=== PATIENT | female | born 1940 | race Caucasian/White ===

== ENCOUNTER → 2017-01-12 | Outpatient (CLI) | payer MEDICARE ==
[~2017-01-12] MED LIST: MECL12.579 PO; ONDA4TAB11 PO
--- NOTE | 2017-01-12 09:21 | Diagnostic Imaging Report ---
EXAMINATION: Left breast diagnostic mammogram with tomography. The current study was also evaluated with a Computer Aided Detection (CAD) system. COMPARISON: 12/07/2015. INDICATION: History of breast cancer status post right mastectomy. FINDINGS: The left breast parenchyma is heterogeneously dense which may decrease mammographic sensitivity. There are benign-appearing calcifications seen. No mass, architectural distortion, or suspicious cluster of calcifications. IMPRESSION: Stable mammographic findings. ACR BI-RADS Category 2: Benign findings. Result letter will be mailed to the patient. Note: At least 10% of breast cancer is not imaged by mammography. Dictated by: Dictated on workstation # [id number]
== END ==
LOC: RAD 07:31
DX: Z12.31 Encounter for screening mammogram for malignant neoplasm of breast (principal); Z90.11 Acquired absence of right breast and nipple; Z85.3 Personal history of malignant neoplasm of breast

== ENCOUNTER → 2017-10-25 | Outpatient (CLI) | payer MEDICARE ==
--- NOTE | 2017-10-25 11:37 | Diagnostic Imaging Report ---
INDICATION: Annual checkup. Reticular lung disease COMPARISON: None FINDINGS: Two views of the chest were obtained . Heart size is normal. The pulmonary vessels appear unremarkable. There is no pneumothorax, mediastinal widening or pleural fluid. Lungs are clear. The osseous structures appear unremarkable. IMPRESSION: No acute abnormality is demonstrated. Dictated by: Dictated on workstation # [id number]
== END ==
LOC: RAD 11:00
PROVIDERS: ATTEND Nurse Practitioner Family
DX: J98.4 Other disorders of lung (principal)
CPT/HCPCS: 71046

== ENCOUNTER → 2018-01-23 | Outpatient (CLI) | payer MEDICARE ==
--- NOTE | 2018-01-23 14:41 | Diagnostic Imaging Report ---
INDICATION: Routine screening. COMPARISON: 01/12/2017 and 12/07/2015. TECHNIQUE: Unilateral left 2D and 3D screening mammography was performed with CAD. FINDINGS: The left breast is heterogeneously dense, limiting the sensitivity of mammography. The parenchymal pattern is stable. No dominant mass or malignant appearing microcalcifications are seen. The left axilla is unremarkable. IMPRESSION: No mammographic features suspicious for malignancy are identified. ACR BI-RADS Category 1: Negative. Result letter will be mailed to the patient. Note: At least 10% of breast cancer is not imaged by mammography. Dictated by: Dictated on workstation # [id number]
== END ==
LOC: RAD 09:45
DX: Z12.31 Encounter for screening mammogram for malignant neoplasm of breast (principal)

== ENCOUNTER → 2018-02-07 | Outpatient (CLI) | payer MEDICARE ==
[~2018-02-07] MED LIST changes: +RT-ALBUTEROL SULF 2.5 MG/3 ML PRE-MIX VIAL INH ONE
--- NOTE | 2018-02-07 12:07 | Diagnostic Imaging Report ---
PROCEDURE: CT chest without contrast. TECHNIQUE: Multiple contiguous axial images were obtained through the chest without the use of intravenous contrast. INDICATION: Shortness of air and fatigue. COMPARISON: Comparison is made with prior chest CT from 03/10/2016. FINDINGS: No axillary lymphadenopathy is seen. No definite hilar or mediastinal lymphadenopathy is detected. No pericardial or pleural fluid is detected. Postsurgical changes of right mastectomy are noted. No internal mammary lymphadenopathy is detected. Mild interstitial changes in the left upper and left lower lobe are again seen, which appear chronic. No discrete mass is identified. The upper abdomen is unremarkable. Bony structures are unremarkable. IMPRESSION: Stable chronic interstitial changes in the left lung when compared with prior CT from 03/10/2016. No acute feature is detected. Dictated by: Dictated on workstation # [id number]
== END ==
LOC: RAD 11:26
PROVIDERS: ATTEND Nurse Practitioner Family
DX: J98.4 Other disorders of lung (principal); J30.9 Allergic rhinitis, unspecified; Z90.11 Acquired absence of right breast and nipple
CPT/HCPCS: 71250; 94060; 94726; 94729

== ENCOUNTER → 2019-01-25 | Outpatient (CLI) | payer MEDICARE ==
[~2019-01-25] MED LIST changes: -RT-ALBUTEROL SULF 2.5 MG/3 ML PRE-MIX VIAL INH ONE
--- NOTE | 2019-01-25 12:38 | Diagnostic Imaging Report ---
INDICATION: Routine screening. Comparison is made with prior mammogram from 01/23/2018 and 01/12/2017. 2-D and 3-D unilateral left screening mammography was performed with CAD. Left breast remains heterogeneously dense, limiting the sensitivity of mammography. The parenchymal pattern is stable. No mass or malignant appearing microcalcifications are seen. Left axilla is unremarkable. IMPRESSION: BI-RADS Category 1 No mammographic features suspicious for malignancy are identified. Dictated by: Dictated on workstation # [id number]
== END ==
LOC: RAD 09:34
DX: Z12.31 Encounter for screening mammogram for malignant neoplasm of breast (principal)

== ENCOUNTER → 2019-02-14 | Outpatient (CLI) | payer MEDICARE | LOC: CARD 12:55 | PROVIDERS: ATTEND Internal Medicine Cardiovascular Disease | DX: I35.1 Nonrheumatic aortic (valve) insufficiency (principal); I10 Essential (primary) hypertension; E78.2 Mixed hyperlipidemia; J98.4 Other disorders of lung | CPT/HCPCS: 93306 ==

== ENCOUNTER 2020-01-08 05:47 | Outpatient (CLI) | payer MEDICARE ==
[~2020-01-08] VITALS: Ht 154.9 cm; Wt 63.6 kg
[2020-01-08] MEDS ORDERED: ATOR40TA70 PO (10:51)
[2020-01-08] MEDS ORDERED: AMLO10TA7 PO (10:51)
[2020-01-08] MEDS ORDERED: ASPI-1238 PO (10:51)
[2020-01-08] MEDS ORDERED: OMG1KC PO (10:51)
[2020-01-08] MEDS ORDERED: GABA300C PO (10:51)
[2020-01-08] MEDS ORDERED: PANT40TA52 PO (10:51)
[2020-01-08] MEDS ORDERED: LEVO50TA6 PO (10:51)
== END 2020-01-08 11:02 | disposition home or self-care (01) ==
LOC: PREOP 05:47
PROVIDERS: ATTEND Specialist
DX: Z01.818 Encounter for other preprocedural examination (principal)

== ENCOUNTER → 2020-01-27 | Outpatient (CLI) | payer MEDICARE ==
[~2020-01-27] MED LIST changes: +AMLO10TA7 PO; +ASPI-1238 PO; +ATOR40TA70 PO; +GABA300C PO; +LEVO50TA6 PO; +OMG1KC PO; +PANT40TA52 PO
--- NOTE | 2020-01-27 20:41 | Diagnostic Imaging Report ---
EXAM: Left screening mammogram COMPARISON: This study was compared to the prior exams of 01/25/2019, 01/23/2018 and 01/12/2017. There are no current complaints. The patient did undergo a mastectomy for carcinoma in 1973. FINDINGS: The fibroglandular tissue in the left breast is heterogeneously dense. This does limit the sensitivity of this exam. Overall, there does not appear to have been any significant change when compared to the prior studies. There is no primary or secondary sign of malignancy noted. IMPRESSION: There is no evidence of malignancy. ACR category 1. ACR BI-RADS Category 1: Negative. Result letter will be mailed to the patient. Note: At least 10% of breast cancer is not imaged by mammography. Dictated by: Dictated on workstation # [id number]
== END ==
LOC: RAD 09:30
DX: Z12.31 Encounter for screening mammogram for malignant neoplasm of breast (principal)
CPT/HCPCS: 77063

== ENCOUNTER 2020-01-31 08:51 | Day surgery (SDC) | payer MEDICARE ==
[~2020-01-31] VITALS: Ht 154.9 cm; Wt 63.6 kg
[~2020-01-31 08:51] MED LIST changes: +AMLO-251 PO; -AMLO10TA7 PO
[2020-01-31] MEDS: TETRACAINE 0.5% OPHTH SOLN 4 ML BTL (SINGLE DOSE ONLY) OU PRN ×4 (09:12→09:41)
[2020-01-31] MEDS ORDERED: POVIDONE (BETADINE) OPHTH SOLN 5% 30 ML OP ONE (09:15)
[2020-01-31] MEDS ORDERED: CYCLOPENTOLATE 1% (CYCLOGYL) 2 ML DROPS OP SCH (09:15)
[2020-01-31] MEDS ORDERED: LIDOCAINE PF 1% 2 ML VIAL IR PRN (09:15)
[2020-01-31] MEDS ORDERED: MOXIFLOXACIN OPHTH SOLN 5 MG/ML 0.3 ML SYRINGE OP ONE (09:15)
[2020-01-31] MEDS ORDERED: TIMOLOL MALEATE 0.5% 5 ML (TIMOPTIC) BTL OU PRN (09:15)
[2020-01-31] MEDS ORDERED: MIDAZOLAM 2 MG/2 ML (VERSED) VIAL ONE (09:20)
[2020-01-31 09:26] VITALS: BP 137/70
[2020-01-31] MEDS: PHENYLEPHRINE 10% OPHTH (NEO-SYN) 5 ML BTL OU SCH ×3 (09:28→09:41)
[2020-01-31] MEDS: TROPICAMIDE 1% OPH SOLN (MYDRIACYL) 15 ML BTL OP SCH ×3 (09:32→09:41)
--- NOTE | 2020-01-31 09:38 | Ophthalmologist Pre-Op Note ---
Pre-Operative Progress Note H&P Reviewed The H&P was reviewed, patient examined and no changes noted. Date H&P Reviewed: Jan 31, 2020 Time H&P Reviewed: 09:38 Pre-Op Dx Cataract, Right Eye CHANTALE JOHNSON MD Jan 31, 2020 09:38
--- NOTE | 2020-01-31 10:12 | Ophthalmology Operative Report ---
Cataract removal/placement IOL PREOPERATIVE DIAGNOSIS: Cataract Right Eye POSTOPERATIVE DIAGNOSIS: Cataract Right Eye PROCEDURE: Cataract removal and placement of posterior chamber implant, right eye SURGEON: Marbin Johnson ANESTHESIA: Topical with sedation COMPLICATIONS: None ESTIMATED BLOOD LOSS: Minimal DESCRIPTION OF PROCEDURE: After proper informed consent was obtained, the patient, a 79 female, was taken to the Operating Room and the right eye was anesthetized with tetracaine. The right eye was then prepped and draped in the usual manner. A wire lid speculum was placed. A paracentesis was made at the left hand position. Preservative free lidocaine was injected into the anterior chamber followed by viscoelastic. A clear corneal incision was made in the temporal position. A capsulorrhexis was preformed and the central nuclear and cortical material were removed. The posterior capsule was polished and Prasanna [id number] 15.5 IOL was placed into the capsular bag. The residual viscoelastic was aspirated and balanced saline solution was injected into the anterior chamber. Moxifloxacin was injected into the anterior chamber. The wound was checked and found to be water tight. The patient tolerated the procedure well without complications. MARBIN JOHNSON MD Jan 31, 2020 10:12
[2020-01-31 10:25] VITALS: BP 134/68
[2020-01-31] MEDS ORDERED: acetaZOLAMIDE ER 500 MG CAP (DIAMOX SEQUELS) PO ONE (10:30)
--- NOTE | 2020-01-31 13:57 | Anesthesia-General Post-Op ---
MAC Patient Condition Mental Status/LOC: Same as Preop Cardiovascular: Satisfactory Nausea/Vomiting: Absent Respiratory: Satisfactory Pain: Controlled Complications: Absent Post Op Complications Complications None Follow Up Care/Instructions Patient Instructions None needed. Anesthesiology Discharge Order Discharge Order Patient is doing well, no complaints, stable vital signs, no apparent adverse anesthesia problems. No complications reported per nursing. BERE MARQUES CRNA Jan 31, 2020 13:56
== END 2020-01-31 10:25 | disposition home or self-care (01) ==
LOC: SDC 08:51
PROVIDERS: ATTEND Specialist
DX: H25.11 Age-related nuclear cataract, right eye (principal); E78.00 Pure hypercholesterolemia, unspecified; K57.92 Diverticulitis of intestine, part unspecified, without perforation or abscess without bleeding; Z79.899 Other long term (current) drug therapy; Z91.012 Allergy to eggs; Z88.5 Allergy status to narcotic agent; Z88.0 Allergy status to penicillin; Z88.2 Allergy status to sulfonamides; Z88.1 Allergy status to other antibiotic agents; Z87.891 Personal history of nicotine dependence; Z85.3 Personal history of malignant neoplasm of breast
CPT/HCPCS: 66984; V2787

== ENCOUNTER → 2020-02-05 | Outpatient (CLI) | payer MEDICARE | LOC: LABNPT 06:04 | PROVIDERS: ATTEND Specialist | DX: Z01.812 Encounter for preprocedural laboratory examination (principal); Z20.828 Contact with and (suspected) exposure to other viral communicable diseases | CPT/HCPCS: 87635 ==

== ENCOUNTER 2020-02-07 07:03 | Day surgery (SDC) | payer MEDICARE ==
[~2020-02-07] VITALS: Ht 152 cm; Wt 63.0 kg
[2020-02-07] MEDS ORDERED: LIDOCAINE PF 1% 2 ML VIAL IR PRN (07:15)
[2020-02-07] MEDS ORDERED: MOXIFLOXACIN OPHTH SOLN 5 MG/ML 0.3 ML SYRINGE OP ONE (07:15)
[2020-02-07] MEDS ORDERED: TIMOLOL MALEATE 0.5% 5 ML (TIMOPTIC) BTL OU PRN (07:15)
[2020-02-07] MEDS ORDERED: POVIDONE (BETADINE) OPHTH SOLN 5% 30 ML OP ONE (07:15)
[2020-02-07] MEDS: TETRACAINE 0.5% OPHTH SOLN 4 ML BTL (SINGLE DOSE ONLY) OU PRN ×4 (07:20→07:43)
[2020-02-07 07:24] VITALS: BP 135/61
[2020-02-07] MEDS: TROPICAMIDE 1% OPH SOLN (MYDRIACYL) 15 ML BTL OP SCH ×3 (07:31→07:43)
[2020-02-07] MEDS: PHENYLEPHRINE 10% OPHTH (NEO-SYN) 5 ML BTL OU SCH ×3 (07:31→07:43)
[2020-02-07] MEDS ORDERED: MIDAZOLAM 2 MG/2 ML (VERSED) VIAL ONE (07:38)
--- NOTE | 2020-02-07 08:14 | Ophthalmologist Pre-Op Note ---
Pre-Operative Progress Note H&P Reviewed The H&P was reviewed, patient examined and no changes noted. Date H&P Reviewed: Feb 07, 2020 Time H&P Reviewed: 08:14 Pre-Op Dx Cataract, Left Eye CHANTALE JOHNSON MD Feb 07, 2020 08:14
[2020-02-07] MEDS ORDERED: acetaZOLAMIDE ER 500 MG CAP (DIAMOX SEQUELS) PO ONE (08:30)
--- NOTE | 2020-02-07 08:49 | Ophthalmology Operative Report ---
Cataract removal/placement IOL PREOPERATIVE DIAGNOSIS: Cataract Left Eye POSTOPERATIVE DIAGNOSIS: Cataract Left Eye PROCEDURE: Cataract removal and placement of posterior chamber implant, left eye SURGEON: Marbin Johnson ANESTHESIA: Topical with sedation COMPLICATIONS: None ESTIMATED BLOOD LOSS: Minimal DESCRIPTION OF PROCEDURE: After proper informed consent was obtained, the patient, a 79 female, was taken to the Operating Room and the left eye was anesthetized with tetracaine. The left eye was then prepped and draped in the usual manner. A wire lid speculum was placed. A paracentesis was made at the left hand position. Preservative free lidocaine was injected into the anterior chamber followed by viscoelastic. A clear corneal incision was made in the temporal position. A capsulorrhexis was preformed and the central nuclear and cortical material were removed. The posterior capsule was polished and an Prasanna [id number] 16.0 [id number] was placed into the capsular bag. The residual viscoelastic was aspirated and balanced saline solution was injected into the anterior chamber. Moxifloxacin was injected into the anterior chamber. The wound was checked and found to be water tight. The patient tolerated the procedure well without complications. MARBIN JOHNSON MD Feb 07, 2020 08:49
[2020-02-07 09:05] VITALS: BP 131/64
--- NOTE | 2020-02-07 09:10 | Anesthesia-General Post-Op ---
MAC Patient Condition Mental Status/LOC: Same as Preop Cardiovascular: Satisfactory Nausea/Vomiting: Absent Respiratory: Satisfactory Pain: Controlled Complications: Absent Post Op Complications Complications None Follow Up Care/Instructions Patient Instructions None needed. Anesthesiology Discharge Order Discharge Order Patient is doing well, no complaints, stable vital signs, no apparent adverse anesthesia problems. No complications reported per nursing. JORGE A CHATTERJEE CRNA Feb 07, 2020 09:10
== END 2020-02-07 09:05 | disposition home or self-care (01) ==
LOC: SDC 07:03
PROVIDERS: ATTEND Specialist
DX: H25.12 Age-related nuclear cataract, left eye (principal); I10 Essential (primary) hypertension; J44.9 Chronic obstructive pulmonary disease, unspecified; E03.9 Hypothyroidism, unspecified; E78.00 Pure hypercholesterolemia, unspecified; Z79.899 Other long term (current) drug therapy; Z88.0 Allergy status to penicillin; Z88.2 Allergy status to sulfonamides; Z88.5 Allergy status to narcotic agent; Z91.012 Allergy to eggs; Z87.891 Personal history of nicotine dependence; Z85.3 Personal history of malignant neoplasm of breast
CPT/HCPCS: 66984; V2787

== ENCOUNTER → 2021-01-12 | Outpatient (CLI) | payer MEDICARE | LOC: CARD 11:00 | PROVIDERS: ATTEND Internal Medicine Cardiovascular Disease | DX: I11.9 Hypertensive heart disease without heart failure (principal); I35.1 Nonrheumatic aortic (valve) insufficiency | CPT/HCPCS: 93306 ==

== ENCOUNTER → 2021-02-24 | Outpatient (CLI) | payer MEDICARE ==
[~2021-02-24] MED LIST changes: +CATHETER FLUSH 10 ML SYR IV PRN
[2021-02-24 09:52] VITALS: BP 152/57
[2021-02-24 10:07] VITALS: BP 182/77
--- NOTE | 2021-02-24 13:46 | Cardiology Stress Test Report ---
Stress Test Report Date of Procedure/Referring: Date of Procedure: Feb 24, 2021 PCP Carlos Sigala MD Admitting Physician Elvin Gooden MD Indications: HTN Baseline Heart Rate: 65 Baseline Blood Pressure: Blood Pressure Systolic: 182 Blood Pressure Diastolic: 77 Vital Signs Date Time Temp Pulse Resp B/P (MAP) Pulse Ox O2 Delivery O2 Flow Rate FiO2 02/24/21 09:52 64 17 152/57 (88) 99 Room Air Baseline Vital Signs Vital Signs Date Time Temp Pulse Resp B/P (MAP) Pulse Ox O2 Delivery O2 Flow Rate FiO2 02/24/21 09:52 64 17 152/57 (88) 99 Room Air Baseline EKG: Baseline EKG: NSR Summary: After explaining the procedure and details to the patient, she signed the consent and was brought to the stress nuclear laboratory. Patient exercised on standard Zoran protocol, EKG, heart rate and blood pressure were monitored continuously, resting and stress doses of radio tracer were injected, imaging was acquired and reviewed in the short axis, horizontal long axis and vertical long axis views Patient was able to exercise for a total of 4.30 minutes on Zoran protocol, ME Ts 5.5 Maximum heart rate 127 Maximum blood pressure 182/77 Stress EKG, Minimal nondiagnostic changes Recovery EKG, Return to baseline TID: 1.02 SSS: 1 SDS: 1 EF: 68 Conclusion: 1. Fair exercise tolerance for a total of 4-minute 30 seconds on standard Zoran protocol, total of 5.5 METS achieving 90% of maximal expected heart rate 2. Minimal nondiagnostic EKG changes with exercise return to baseline during recovery 3. Hypertensive response to exercise with peak blood pressure 182/77 return to baseline during recovery 4. No significant ischemia or infarction on SPECT images 5. Normal left ventricular size, EF 68% CARLOS SIGALA MD Feb 24, 2021 13:46
== END ==
LOC: CARD 08:14
PROVIDERS: ATTEND Internal Medicine Cardiovascular Disease
DX: I10 Essential (primary) hypertension (principal)
CPT/HCPCS: 78452; 93017; A9502

== ENCOUNTER → 2021-02-24 | Outpatient (CLI) | payer MEDICARE ==
[~2021-02-24] MED LIST changes: -CATHETER FLUSH 10 ML SYR IV PRN
--- NOTE | 2021-02-24 10:59 | Diagnostic Imaging Report ---
Indication: Routine screening. Comparison is made with prior mammogram from 01/27/2020 and 01/25/2019. Unilateral left 2-D and 3-D screening mammography was performed with CAD. Left breast is heterogeneously dense, limiting the sensitivity of mammography. The parenchymal pattern is stable. No dominant mass or malignant-appearing microcalcifications. The left axilla is unremarkable. IMPRESSION: BI-RADS Category 1 No mammographic features suspicious for malignancy are identified. Dictated by: Dictated on workstation # [id number]
== END ==
LOC: RAD 11:30
DX: Z12.31 Encounter for screening mammogram for malignant neoplasm of breast (principal)
CPT/HCPCS: 77063

== ENCOUNTER 2021-04-01 09:33 | Outpatient (RCR) | payer MEDICARE | END 2021-04-09 | disposition home or self-care (01) | PROVIDERS: ATTEND Family Medicine | DX: M54.32 Sciatica, left side (principal); M25.511 Pain in right shoulder ==

== ENCOUNTER → 2021-05-10 | Outpatient (RCR) | payer MEDICARE | END | disposition home or self-care (01) | PROVIDERS: ATTEND Family Medicine | DX: M54.32 Sciatica, left side (principal); M25.511 Pain in right shoulder; I10 Essential (primary) hypertension | CPT/HCPCS: 97110; 97140; G0283 ==

== ENCOUNTER → 2021-06-07 | Outpatient (RCR) | payer MEDICARE | END | disposition home or self-care (01) | PROVIDERS: ATTEND Family Medicine | DX: M54.32 Sciatica, left side (principal); M25.511 Pain in right shoulder; I10 Essential (primary) hypertension ==

== ENCOUNTER 2021-07-01 11:03 | Outpatient (RCR) | payer MEDICARE | END 2021-07-08 | disposition home or self-care (01) | PROVIDERS: ATTEND Family Medicine | DX: M54.32 Sciatica, left side (principal); M25.511 Pain in right shoulder; I10 Essential (primary) hypertension ==

== ENCOUNTER → 2021-07-15 | Outpatient (CLI) | payer MEDICARE ==
--- NOTE | 2021-07-15 11:39 | Diagnostic Imaging Report ---
INDICATION: Fall with right shoulder and scapular region pain. FINDINGS: AP and lateral views of thoracic spine reveal normal curvature and alignment. Vertebral body heights are maintained. There is mild diffuse disc space narrowing. There is slight left convexity curvature of lower thoracic spine. Calcification in the left upper abdomen could represent renal stone. There are prominent interstitial markings throughout the lungs. IMPRESSION: Thoracic spondylosis with mild left convexity scoliosis. No acute thoracic spinal abnormality is identified. Prominent interstitial markings are present in both lungs which could be related to chronic fibrosis. Dictated by: Dictated on workstation # [id number]
--- NOTE | 2021-07-15 12:46 | Diagnostic Imaging Report ---
INDICATION: Right clavicle pain. TECHNIQUE: AP and angled views of the right clavicle were obtained. FINDINGS: No fracture or acute bony abnormality is seen. There is moderate degenerative change of the AC joint. IMPRESSION: No acute fracture of the right clavicle. Moderate degenerative change of the AC joint is noted. Dictated by: Dictated on workstation # [id number]
--- NOTE | 2021-07-15 13:06 | Diagnostic Imaging Report ---
INDICATION: Right shoulder pain. AP, oblique, and transscapular views of the right shoulder are obtained. FINDINGS: No fracture or acute bony abnormality seen. There is mild degenerative changes of glenohumeral joint and AC joint. IMPRESSION: Mild degenerative findings with no acute abnormality of the right shoulder. Dictated by: Dictated on workstation # [id number]
--- NOTE | 2021-07-15 13:14 | Diagnostic Imaging Report ---
INDICATION: Scapular pain, post fall. TECHNIQUE: AP and lateral views of the scapula on the right side are obtained. FINDINGS: No fracture or acute bony abnormality is seen. IMPRESSION: Negative right scapula. Dictated by: Dictated on workstation # [id number]
== END ==
LOC: RAD 10:51
PROVIDERS: ATTEND Family Medicine
DX: M19.011 Primary osteoarthritis, right shoulder (principal); M47.814 Spondylosis without myelopathy or radiculopathy, thoracic region; M41.9 Scoliosis, unspecified
CPT/HCPCS: 72070; 73000; 73010; 73030

== ENCOUNTER 2021-10-19 12:54 | Outpatient (CLI) | payer MEDICARE ==
[~2021-10-19] VITALS: Ht 152.4 cm; Wt 64.0 kg
[2021-10-19 14:00] VITALS: BP 153/63
== END 2021-10-19 14:00 | disposition home or self-care (01) ==
LOC: SDC 12:54
PROVIDERS: ATTEND Nurse Practitioner Family
DX: R10.2 Pelvic and perineal pain (principal); R30.0 Dysuria
CPT/HCPCS: 51798

== ENCOUNTER 2022-11-02 06:27 | Outpatient (CLI) | payer MEDICARE ==
[~2022-11-02] VITALS: Ht 153.7 cm; Wt 66.8 kg
[2022-11-02] MEDS ORDERED: OFLO5DRO8 OP (13:50)
[2022-11-02] MEDS ORDERED: LISI10TA25 PO (13:50)
[2022-11-02] MEDS ORDERED: GEMF600T88 PO (13:50)
== END 2022-11-02 14:02 | disposition home or self-care (01) ==
LOC: PREOP 06:27
PROVIDERS: ATTEND Surgery
DX: Z01.818 Encounter for other preprocedural examination (principal)

== ENCOUNTER 2022-11-07 10:45 | Day surgery (SDC) | payer MEDICARE ==
[~2022-11-07] VITALS: Ht 153.7 cm; Wt 66.8 kg
[~2022-11-07 10:45] MED LIST changes: +GEMF600T88 PO; +LISI10TA25 PO; +OFLO5DRO8 OP
[2022-11-07] MEDS ORDERED: LACTATED RINGERS 1,000 ML IV STA (10:48)
[2022-11-07] MEDS ORDERED: HURRICAINE EXT TUBE (BENZOCAINE) XX PRN (11:00)
--- NOTE | 2022-11-07 11:11 | Progress Note-Pre Operative ---
Pre-Operative Progress Note Date of Available H&P: Nov 01, 2022 Date H&P Reviewed: Nov 07, 2022 Time H&P Reviewed: 11:08 History & Physical: H&P Reviewed, Patient Examed, No changes noted Pre-Operative Diagnosis: GERD, Dysphagia, Coffee ground emesis TRUDY AVILA DO Nov 07, 2022 11:11
[2022-11-07] MEDS ORDERED: proPOfol 200 MG/20 ML (DIPRIVAN) VIAL IV ONE (11:39)
[2022-11-07 11:40] VITALS: BP 156/66
[2022-11-07 12:15] VITALS: BP 153/67
--- NOTE | 2022-11-07 12:17 | Progress Note-Post Operative ---
Post-Operative Progess Note Surgeon (s)/Manager Staffing (s) Surgeon TRUDY AVILA DO Manager Staffing: none Pre-Operative Diagnosis GERD, Dysphagia, Coffee ground emesis Post-Operative Diagnosis Gastritis Duodenitis Hiatal hernia Esophagitis Gastric Polyps Procedure & Operative Findings Date of Procedure 11/07/22 Procedure Performed/Findings EGD with biopsy EGD with Hot biopsy removal of polyps PROCEDURE NOTE: After informed consent was obtained, the patient was brought to the endoscopy suite, placed in bed in left lateral decubitus position. She was administered IV sedation by the PHOTOGRAPH PRINTER who then monitored vitals the entire time, heart rate, blood pressure and pulse ox and the scope was inserted down the mouth through the esophagus into the stomach. On the way down, noted some mild esophagitis, took a picture and pushed into the stomach. I did not really no raj any stricture or narrowing at the GE junction. Pushed past the antrum into the duodenum. Duodenum appeared to have some inflammation and did a biopsy in the bulb of the duodenum. Pulled back, noted some mild gastritis and did a biopsy of the antrum. I also found a lot of gastric polyps, took a picture and then elected to do a hot biopsy and remove three polyps. Next, retroflexed the scope, saw a large Grade IV AFS hiatal hernia, took a picture of this and then pulled the scope into the GE junction. I took another picture of the hiatal hernia, noted esophagitis and then did a biopsy of the GE junction. Pushed the scope back into the stomach, suctioned all the air out of the stomach. At this point pulled the scope up the esophagus and out the mouth. The patient tolerated the procedure, and she recovered in endoscopy suite. Anesthesia Type IV sedation by PHOTOGRAPH PRINTER Estimated Blood Loss Estimated blood loss (mL): scant Specimens/Packing Specimens Removed antral bx duodenal biops GE jxn bx Gastric polyps TRUDY AVILA DO Nov 07, 2022 12:17
--- NOTE | 2022-11-07 12:18 | Endoscopy Discharge Instruct ---
Endo Procedure/Findings Findings 1.: Gastritis 2.: Hiatal Hernia 3.: Polyp (Gastric), Other Findings (Esophagitis) 4.: Other Findings (duodenitis) Discharge Instructions - Activity: You might feel a little sleepy until tomorrow. This is due to the medicine you received to relax you. Until tomorrow, you should: NOT drive a car, operate machinery or power tools. NOT drink any alcoholic beverages. NOT make any important decisions or sign importortant papers. Do not return to work until tomorrow, unless otherwise instructed. Resume previous activities tomorrow. Diet: Start by taking liquids. If you tolerate liquids, advance to solid food. 1.: EGD in 3 years Notify Physician - If you experience excessive bleeding, unusual abdominal pain, fever, or chest pain, contact your doctor immediately. Follow-Up: Other Follow up in my office in one week TRUDY AVILA DO Nov 07, 2022 12:18
--- NOTE | 2022-11-07 12:19 | Anesthesia-General Post-Op ---
MAC Patient Condition Mental Status/LOC: Same as Preop Cardiovascular: Satisfactory Nausea/Vomiting: Absent Respiratory: Satisfactory Pain: Controlled Complications: Absent Post Op Complications Complications None Follow Up Care/Instructions Patient Instructions None needed. Anesthesiology Discharge Order Discharge Order Patient is doing well, no complaints, stable vital signs, no apparent adverse anesthesia problems. No complications reported per nursing. VIOLET CRUZ CRNA Nov 07, 2022 12:19
[2022-11-07 12:28] VITALS: BP 153/67
[2022-11-07 12:50] VITALS: BP 153/67
== END 2022-11-07 12:50 | disposition home or self-care (01) ==
LOC: ENDO 10:45
PROVIDERS: ATTEND Surgery
DX: K21.00 Gastro-esophageal reflux disease with esophagitis, without bleeding (principal); K31.7 Polyp of stomach and duodenum; K29.80 Duodenitis without bleeding; K92.0 Hematemesis; K44.9 Diaphragmatic hernia without obstruction or gangrene; K31.89 Other diseases of stomach and duodenum; Z87.891 Personal history of nicotine dependence; Z71.89 Other specified counseling
CPT/HCPCS: 88305

== ENCOUNTER 2023-02-05 19:05 | Day surgery (SDC) | payer MEDICARE ==
[~2023-02-05] VITALS: Ht 152.4 cm; Wt 63.0 kg
[2023-02-05] VITALS (8 sets, daily range): BP systolic 153–163; BP diastolic 65–76
[2023-02-05 19:30] LABS: BASOPHILS % (AUTO) 1 % (0-10); EOSINOPHILS # (AUTO) 0.6 10^3/uL (0.0-0.3); EOSINOPHILS % (AUTO) 10 % (0-10); HEMATOCRIT 41 % (35-52); LYMPHOCYTES # (AUTO) 1.3 10^3/uL (1.0-4.0); LYMPHOCYTES % (AUTO) 23 % (12-44); MEAN CORPUSCULAR HEMOGLOBIN 30 pg (25-34); MEAN CORPUSCULAR HGB CONC 32 g/dL (32-36); MEAN CORPUSCULAR VOLUME 93 fL (80-99); MONOCYTES # (AUTO) 0.5 10^3/uL (0.0-1.0); MONOCYTES % (AUTO) 9 % (0-12); NEUTROPHILS # (AUTO) 3.3 10^3/uL (1.8-7.8); NEUTROPHILS % (AUTO) 58 % (42-75); PLATELET COUNT 225 10^3/uL (130-400); WHITE BLOOD COUNT 5.7 10^3/uL (4.3-11.0)
[2023-02-05] MEDS: GLUCAGON EMERGENCY 1 MG/KIT IV ONE (19:37)
--- NOTE | 2023-02-05 19:41 | ED GI ---
General Chief Complaint: Foreign Body Stated Complaint: FOOD STUCK IN THROAT Nursing Triage Note: PT AMB TO RM 2 W C/O FOOD BOLUS, REPORTS SHE WAS EATING CHICKEN AND DUMPLINGS AROUND 1809 THIS PM WHEN A PIECE OF CHICKEN GOT STUCK. PT HAS HX OF FOOD BOLUS, A&OX4. Source of Information: Patient History of Present Illness Date Seen by Provider: Feb 05, 2023 Time Seen by Provider: 19:16 Initial Comments PT ARRIVES VIA POV FROM HOME PT STATES SHE WAS EATING CHICKEN AND DUMPLINGS AROUND 1809, AND PIECE OF CHICKEN GOT STUCK IN HER ESOPHAGUS. SHE IS NOT ABLE TO SWALLOW SALIVA NO VOMITING, BUT HAS TRIED TO THROW UP, WITHOUT SUCCESS FEELS A LITTLE SHORT OF BREATH NO ACTUAL CHEST PAIN, JUST IS UNCOMFORTABLE FEELING SHE HAS HISTORY OF GERD AND HIATAL HERNIA AND THIS HAS HAPPENED MULTIPLE TIMES MANY TIMES SHE IS ABLE TO GET IT RESOLVED ON HER OWN, SOMETIMES SHE HAS REQUIRED EGD SHE HAS HAD ESOPHAGEAL DILATIONS IN THE PAST. LAST TIME IT HAPPENED WAS ABOUT 3 MONTHS AGO, AND IT RESOLVED AT HOME. PCP: DR. ABDI Allergies and Home Medications Allergies Coded Allergies: morphine (Verified Allergy, Intermediate, Vomiting, 10/19/21) Penicillins (Verified Allergy, Mild, Rash, 10/19/21) Sulfa (Sulfonamide Antibiotics) (Verified Allergy, Unknown, 02/07/20) adhesive (Verified Allergy, Unknown, 10/19/21) egg (Verified Allergy, Unknown, 02/07/20) Patient Home Medication List Home Medication List Reviewed: Yes Amlodipine Besylate (Amlodipine Besylate) 10 Mg Tablet, 10 MG PO DAILY, (Reported) Entered as Reported by: BRIAN KIM on 01/08/20 105 Aspirin (Aspirin EC) 81 Mg Tablet.dr, 81 MG PO DAILY, (Reported) Entered as Reported by: BRIAN KIM on 01/08/20 1051 Atorvastatin Calcium (Atorvastatin Calcium) 40 Mg Tablet, 40 MG PO HS, (Reported) Entered as Reported by: BRIAN KIM on 01/08/20 105 Gabapentin (Neurontin) 300 Mg Capsule, 300 MG PO HS, (Reported) Entered as Reported by: BRIAN KIM on 01/08/20 105 Gemfibrozil (Gemfibrozil) 600 Mg Tablet, 600 MG PO DAILY, (Reported) Entered as Reported by: SADA QUINN on 11/02/22 1350 Levothyroxine Sodium (Levothyroxine Sodium) 50 Mcg Tablet, 50 MCG PO DAILY, (Reported) Entered as Reported by: BRIAN KIM on 01/08/20 1051 Lisinopril (Lisinopril) 10 Mg Tablet, 10 MG PO DAILY, (Reported) Entered as Reported by: SADA QUINN on 11/02/22 1350 Ofloxacin (Ofloxacin) 0.3 % Drops, 2 DROPS OP DAILY, (Reported) Entered as Reported by: SADA QUINN on 11/02/22 1350 Pantoprazole Sodium (Pantoprazole Sodium) 40 Mg Tablet.dr, 40 MG PO DAILY, (Reported) Entered as Reported by: BRIAN KIM on 01/08/20 1051 Review of Systems Review of Systems Constitutional: no symptoms reported Respiratory: See HPI Gastrointestinal: See HPI Psychiatric/Neurological: Anxiety Past Efnywwb-Uefnnh-Ftdnbb Hx Patient Social History Tobacco Use?: No Use of E-Cig and/or Vaping dev: No Substance use?: No Alcohol Use?: No Immunizations Up To Date First/Initial COVID19 Vaccinat: YES Second COVID19 Vaccination Herbert: YES Third COVID19 Vaccination Date: YES Seasonal Allergies Seasonal Allergies: Yes Past Medical History Surgeries: Yes (R MASTECTOMY;EGD'S/DILATIONS) Breast, Hysterectomy, Orthopedic Respiratory: Yes (RESTRICTIVE LUNG DISEASE) Cardiac: Yes High Cholesterol, Hypertension Neurological: No NAPRAPATH History: Hysterectomy, Menopausal Genitourinary: Yes (SILVIA) Gastrointestinal: Yes (ESOPH STRICTURE/FOOD IMPACTIONS IN ESOPHAGUS) Gastroesophageal Reflux, Diverticulosis, Hiatal Hernia Musculoskeletal: No Endocrine: Yes Hypothyroidsim HEENT: No Cancer: Yes Breast Did You Recieve Any Treatments: Yes What Type of Treatment Did You: Surgical Intervention Psychosocial: Yes Anxiety Integumentary: Yes (THIN SKIN) Blood Disorders: No Physical Exam Vital Signs Vital Signs - First Documented 02/05/23 19:15 Temp 37.0 Pulse 76 Resp 18 B/P (MAP) 167/106 (126) Pulse Ox 99 O2 Delivery Room Air Capillary Refill : Less Than 3 Seconds Height/Weight/BMI Height: '" Weight: lbs. oz. 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, no motor/sensory deficits, alert, oriented x 3 Skin: normal color, warm/dry Progress/Results/Core Measures Results/Orders Lab Results Laboratory Tests Test 02/05/23 19:22 Range/Units White Blood Count 5.7 4.3-11.0 10^3/uL Red Blood Count 4.36 3.80-5.11 10^6/uL Hemoglobin 13.0 11.5-16.0 g/dL Hematocrit 41 35-52 % Mean Corpuscular Volume 93 80-99 fL Mean Corpuscular Hemoglobin 30 25-34 pg Mean Corpuscular Hemoglobin Concent 32 32-36 g/dL Red Cell Distribution Width 13.8 10.0-14.5 % Platelet Count 225 130-400 10^3/uL Mean Platelet Volume 11.0 9.0-12.2 fL Immature Granulocyte % (Auto) 0 % Neutrophils (%) (Auto) 58 42-75 % Lymphocytes (%) (Auto) 23 12-44 % Monocytes (%) (Auto) 9 0-12 % Eosinophils (%) (Auto) 10 0-10 % Basophils (%) (Auto) 1 0-10 % Neutrophils # (Auto) 3.3 1.8-7.8 10^3/uL Lymphocytes # (Auto) 1.3 1.0-4.0 10^3/uL Monocytes # (Auto) 0.5 0.0-1.0 10^3/uL Eosinophils # (Auto) 0.6 H 0.0-0.3 10^3/uL Basophils # (Auto) 0.0 0.0-0.1 10^3/uL Immature Granulocyte # (Auto) 0.0 0.0-0.1 10^3/uL Sodium Level 140 135-145 MMOL/L Potassium Level 4.2 3.6-5.0 MMOL/L Chloride Level 105 98-107 MMOL/L Carbon Dioxide Level 22 21-32 MMOL/L Anion Gap 13 5-14 MMOL/L Blood Urea Nitrogen 24 H 7-18 MG/DL Creatinine 1.22 0.60-1.30 MG/DL Estimat Glomerular Filtration Rate 44 BUN/Creatinine Ratio 20 Glucose Level 135 H 70-105 MG/DL Calcium Level 9.9 8.5-10.1 MG/DL Corrected Calcium 8.5-10.1 MG/DL Total Bilirubin 0.4 0.1-1.0 MG/DL Aspartate Amino Transf (AST/SGOT) 21 5-34 U/L Alanine Aminotransferase (ALT/SGPT) 11 0-55 U/L Alkaline Phosphatase 86 40-136 U/L Total Protein 8.1 6.4-8.2 GM/DL Albumin 4.8 H 3.2-4.5 GM/DL Amylase Level 94 25-125 U/L Lipase 304 H 8-78 U/L My Orders Orders - LIZ SALAMANCA DO Ed Iv/Invasive Line Start (02/05/23 19:23) Monitor-Rhythm Ecg Trace Only (02/05/23 19:23) Amylase (02/05/23 19:23) Cbc And Automated Diff (02/05/23 19:23) Comprehensive Metabolic Panel (02/05/23 19:23) Lipase (02/05/23 19:23) Chest 1 View, Ap/Pa Only (02/05/23 19:23) Glucagon Emergency Kit (Glucagon Emergen (02/05/23 19:30) Medications Given in ED Current Medications Medications Dose Ordered Sig/Belkis Route Start Time Stop Time Status Last Admin Dose Admin Glucagon 1 mg ONCE ONCE IV 02/05/23 19:30 02/05/23 19:31 DC 02/05/23 19:37 1 MG Vital Signs/I&O 02/05/23 19:15 Temp 37.0 Pulse 76 Resp 18 B/P (MAP) 167/106 (126) Pulse Ox 99 O2 Delivery Room Air Blood Pressure Mean: 126 Progress Progress Note : Progress Note VITALS ON ARRIVAL: TEMP 37.0=98/6, HR 76, RR 18, BP 167/106, O2 SAT 99% ON ROOM AIR LABS: -CBC NORMAL -CMP WITH BUN 24, GLUCOSE 135, LIPASE 304, AMYLASE 94, OTHERWISE NORMAL CXR--NO ACUTE PROCESS GIVEN: -GLUCAGON--NO IMPROVEMENT IN SYMPTOMS DISCUSSED TEST RESULTS, NEED FOR ENDOSCOPY AND PT IS AGREEABLE TO PLAN Diagnostic Imaging Comments CXR--PER RADIOLOGIST REPORT AT 1954 FINDINGS: Low lung volumes. Normal heart size such pulmonary vascularity. No focal pulmonary opacity. No pleural effusion or pneumothorax. No acute osseous findings. IMPRESSION: No acute cardiopulmonary findings. Reviewed: Reviewed by Me Departure Communication (Admissions) 1957--SPOKE WITH DR. VÁZQUEZ, WILL BE IN TO SEE PT AND WILL TAKE TO ENDOSCOPY. 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 VÁZQUEZ HERE TO SEE PT 2049--PT TO ENDOSCOPY Impression Primary Impression: Esophageal obstruction due to food impaction Disposition: ADMITTED INPATIENT (TO ENDOSCOPY) Condition: Stable Admissions Decision to Admit Reason: Admit from ER (General) (TO ENDOSCOPY) Decision to Admit/Date: Feb 05, 2023 Time/Decision to Admit Time: 20:00 Departure-Patient Inst. Referrals: JESSICA ABDI MD (PCP) Primary Care Physician LIZ SALAMANCA DO Feb 05, 2023 19:41
--- NOTE | 2023-02-05 19:44 | Diagnostic Imaging Report ---
EXAM: CHEST 1 VIEW, AP/PA ONLY INDICATION: Shortness of breath. Food bolus and esophagus. COMPARISON: None. FINDINGS: Low lung volumes. Normal heart size such pulmonary vascularity. No focal pulmonary opacity. No pleural effusion or pneumothorax. No acute osseous findings. IMPRESSION: No acute cardiopulmonary findings. Dictated by: Dictated on workstation # [id number]
[2023-02-05 19:54] LABS: ALANINE AMINOTRANSFERASE 11 U/L (0-55); ALBUMIN 4.8 GM/DL (3.2-4.5); ALKALINE PHOSPHATASE 86 U/L (40-136); AMYLASE 94 U/L (25-125); BILIRUBIN,TOTAL 0.4 MG/DL (0.1-1.0); BUN/CREATININE RATIO 20; CALCIUM 9.9 MG/DL (8.5-10.1); CARBON DIOXIDE 22 MMOL/L (21-32); CHLORIDE 105 MMOL/L (98-107); CREATININE SERUM 1.22 MG/DL (0.60-1.30); GFR ESTIMATED 44; GLUCOSE 135 MG/DL (70-105); LIPASE 304 U/L (8-78); POTASSIUM 4.2 MMOL/L (3.6-5.0); SODIUM 140 MMOL/L (135-145); TOTAL PROTEIN 8.1 GM/DL (6.4-8.2)
[2023-02-05] MEDS ORDERED: fentaNYL INJECTION 100 MCG/2 ML VIAL ONE (20:34)
[2023-02-05] MEDS ORDERED: SUCCINYLCHOLINE INJ 20 MG/1 ML 10 ML VIAL ONE (20:34)
[2023-02-05] MEDS ORDERED: proPOfol INJECTION 200 MG/20 ML VIAL IV ONE (20:34)
[2023-02-05] MEDS ORDERED: ONDANSETRON INJECTION 4 MG/2 ML (SDV) ONE (20:34)
[2023-02-05] MEDS ORDERED: LIDOCAINE PF 2% 5 ML VIAL ONE (20:34)
--- NOTE | 2023-02-05 20:43 | Consultation - Surgery ---
History of Present Illness History of Present Illness Patient Consulted On(martinez/time) 02/05/23 20:36 Date Seen by Provider: Feb 05, 2023 Time Seen by Provider: 20:36 History of Present Illness CC: food bolus 82 year old female eating chicken and dumplings. Has some chicken she believes stuck in distal esophagus. Can't get it to come up or down. Has had issues for 15 years of foods getting stuck. Had to have previous egd and dilations. No abdominal pain. Occurred about 6pm. Spitting up continuously. Denies any other complaints. Allergies and Home Medications Allergies Coded Allergies: morphine (Verified Allergy, Intermediate, Vomiting, 10/19/21) Penicillins (Verified Allergy, Mild, Rash, 10/19/21) Sulfa (Sulfonamide Antibiotics) (Verified Allergy, Unknown, 02/07/20) adhesive (Verified Allergy, Unknown, 10/19/21) egg (Verified Allergy, Unknown, 02/07/20) Patient Home Medication List Home Medication List Reviewed: Yes Amlodipine Besylate (Amlodipine Besylate) 10 Mg Tablet, 10 MG PO DAILY, (Reported) Entered as Reported by: BRIAN KIM on 01/08/20 1051 Aspirin (Aspirin EC) 81 Mg Tablet.dr, 81 MG PO DAILY, (Reported) Entered as Reported by: BRIAN KIM on 01/08/20 1051 Atorvastatin Calcium (Atorvastatin Calcium) 40 Mg Tablet, 40 MG PO HS, (Reported) Entered as Reported by: BRIAN KIM on 01/08/20 1051 Gabapentin (Neurontin) 300 Mg Capsule, 300 MG PO HS, (Reported) Entered as Reported by: BRIAN KIM on 01/08/20 1051 Gemfibrozil (Gemfibrozil) 600 Mg Tablet, 600 MG PO DAILY, (Reported) Entered as Reported by: SADA QUINN on 11/02/22 1350 Levothyroxine Sodium (Levothyroxine Sodium) 50 Mcg Tablet, 50 MCG PO DAILY, (Reported) Entered as Reported by: BRIAN KIM on 01/08/20 1051 Lisinopril (Lisinopril) 10 Mg Tablet, 10 MG PO DAILY, (Reported) Entered as Reported by: SADA QUINN on 11/02/22 1350 Ofloxacin (Ofloxacin) 0.3 % Drops, 2 DROPS OP DAILY, (Reported) Entered as Reported by: SADA QUINN on 11/02/22 1350 Pantoprazole Sodium (Pantoprazole Sodium) 40 Mg Tablet.dr, 40 MG PO DAILY, (Reported) Entered as Reported by: BRIAN KIM on 01/08/20 1051 Past Pmdsppx-Vqbhsv-Clgjyc Hx Patient Social History Smoking Status: Never a Smoker Former Smoker, Quit: Oct 08, 1985 Recent Hopitalizations: No Alcohol Use?: No Seasonal Allergies Seasonal Allergies: Yes Surgeries History of Surgeries: Yes (R MASTECTOMY;EGD'S/DILATIONS) Surgeries: Breast, Hysterectomy, Orthopedic Respiratory History of Respiratory Disorde: Yes (RESTRICTIVE LUNG DISEASE) Cardiovascular History of Cardiac Disorders: Yes Cardiac Disorders: High Cholesterol, Hypertension Neurological History of Neurological Disord: No 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, 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 Genitourinary History of Genitourinary Disor: Yes (SILVIA) Gastrointestinal History of Gastrointestinal Di: Yes (ESOPH STRICTURE/FOOD IMPACTIONS IN ESOPHAGUS) Gastrointestinal Disorders: Gastroesophageal Reflux, Diverticulosis, Hiatal Hernia Musculoskeletal History of Musculoskeletal Dis: No Endocrine History of Endocrine Disorders: Yes Endocrine Disorders: Hypothyroidsim HEENT History of HEENT Disorders: No Cancer History of Cancer: Yes Cancer: Breast Psychosocial History of Psychiatric Problem: Yes Behavioral Health Disorders: Anxiety Integumentary History of Skin or Integumenta: Yes (THIN SKIN) Blood Transfusions History of Blood Disorders: No Reviewed Nursing Assessment Reviewed/Agree w Nursing PMH: Yes Family Medical History Significant Family History: No Pertinent Family Hx Review of Systems-General Constitutional: No chills, No diaphoresis EENTM: No blurred vision, No double vision Respiratory: No dyspnea on exertion, No short of breath Cardiovascular: No chest pain, No palpitations Gastrointestinal: nausea, vomiting Genitourinary: No decreased output, No discharge Musculoskeletal: No back pain, No joint pain Skin: No change in color, No change in hair/nails Psychiatric/Neurological: Denies Anxiety, Denies Depressed, Denies Emotional Problems All Other Systems Reviewed Negative Unless Noted: Yes (Negative excepted noted.) Physical Exam-General Problems Physical Exam Vital Signs Vital Signs - First Documented 02/05/23 19:15 Temp 37.0 Pulse 76 Resp 18 B/P (MAP) 167/106 (126) Pulse Ox 99 O2 Delivery Room Air Capillary Refill : Less Than 3 Seconds General Appearance: WD/WN, no apparent distress HEENT: PERRL/EOMI, normal ENT inspection Neck: non-tender, full range of motion Respiratory: chest non-tender, no respiratory distress, no accessory muscle use Cardiovascular: regular rate, rhythm, no JVD Gastrointestinal: non tender, soft Back: normal inspection, no CVA tenderness Extremities: non-tender, normal inspection Neurologic/Psychiatric: alert, normal mood/affect, oriented x 3 Skin: normal color, warm/dry Lymphatic: no adenopathy Data Review Labs Laboratory Tests 02/05/23 19:22: White Blood Count 5.7, Red Blood Count 4.36, Hemoglobin 13.0, Hematocrit 41, Mean Corpuscular Volume 93, Mean Corpuscular Hemoglobin 30, Mean Corpuscular Hemoglobin Concent 32, Red Cell Distribution Width 13.8, Platelet Count 225, Mean Platelet Volume 11.0, Immature Granulocyte % (Auto) 0, Neutrophils (%) (Auto) 58, Lymphocytes (%) (Auto) 23, Monocytes (%) (Auto) 9, Eosinophils (%) (Auto) 10, Basophils (%) (Auto) 1, Neutrophils # (Auto) 3.3, Lymphocytes # (Auto) 1.3, Monocytes # (Auto) 0.5, Eosinophils # (Auto) 0.6H, Basophils # (Auto) 0.0, Immature Granulocyte # (Auto) 0.0, Sodium Level 140, Potassium Level 4.2, Chloride Level 105, Carbon Dioxide Level 22, Anion Gap 13, Blood Urea Nitrogen 24H, Creatinine 1.22, Estimat Glomerular Filtration Rate 44, BUN/Creatinine Ratio 20, Glucose Level 135H, Calcium Level 9.9, Corrected Calcium , Total Bilirubin 0.4, Aspartate Amino Transf (AST/SGOT) 21, Alanine Aminotransferase (ALT/SGPT) 11, Alkaline Phosphatase 86, Total Protein 8.1, Albumin 4.8H, Amylase Level 94, Lipase 304H Assessment/Plan Assessment/Plan Assessment/Plan food bolus long-term antiplatelet use discussed risks and benefits of EGD and all other indicated procedures. She understands and wishes to proceed. Called in ENDO and Anesthesia for procedure Discussed liquid diet for a couple days and then slowly advance may need further egd's to reevaluate DEBRA VÁZQUEZ DO Feb 05, 2023 20:43
[2023-02-05] MEDS ORDERED: SEVOFLURANE (ULTANE) 15 ML INHAL SOLN ONE (21:38)
--- NOTE | 2023-02-05 21:50 | Progress Note-Post Operative ---
Post-Operative Progess Note Surgeon (s)/[employer] (s) Surgeon DEBRA VÁZQUEZ DO [employer]: na Pre-Operative Diagnosis food bolus Post-Operative Diagnosis food bolus, distal narrowing, gastric polyps Procedure & Operative Findings Date of Procedure 02/05/23 Procedure Performed/Findings egd c removal food bolus esophagus using reveal distal end cap, biopsy ge junction Anesthesia Type general Estimated Blood Loss Estimated blood loss (mL): scant Specimens/Packing Specimens Removed ge DEBRA VÁZQUEZ DO Feb 05, 2023 21:50
[2023-02-05] MEDS ORDERED: SUCR1TAB36 PO (21:52)
--- NOTE | 2023-02-05 21:53 | Discharge Inst-Simple/Standard ---
Discharge Inst-Standard Discharge Medications New, Converted or Re-Newed RX: Transmitted to Pharmacy Patient Instructions/Follow Up Plan of Care/Instructions/FU: 2 weeks Ghazal Activity as Tolerated: Yes Discharge Diet: Liquid Diet (2 days then advance as tolerates, make sure consistency of solid food is ground up, take small bites followed by drinks of water.) DEBRA VÁZQUEZ DO Feb 05, 2023 21:53
[2023-02-05] MEDS ORDERED: LACTATED RINGERS 1,000 ML 1,000 ML IV PRN (22:00)
--- NOTE | 2023-02-05 22:07 | Anesthesia-General Post-Op ---
General Patient Condition Mental Status/LOC: Same as Preop Cardiovascular: Satisfactory Nausea/Vomiting: Absent Respiratory: Satisfactory Pain: Controlled Complications: Absent Post Op Complications Complications None Follow Up Care/Instructions Patient Instructions None needed. Anesthesia/Patient Condition Patient Condition Patient is doing well, no complaints, stable vital signs, no apparent adverse anesthesia problems. No complications reported per nursing. CHANCE OLIVEROS CRNA Feb 05, 2023 22:07
[2023-02-05] MEDS: fentaNYL INJECTION 100 MCG/2 ML VIAL IVP ONE (22:49)
[2023-02-05] MEDS: ONDANSETRON INJECTION 4 MG/2 ML (SDV) IVP PRN (22:49)
--- NOTE | 2023-02-06 01:06 | OPERATIVE REPORT ---
DATE OF SERVICE: 02/05/2023 PREOPERATIVE DIAGNOSIS: Food bolus. POSTOPERATIVE DIAGNOSES: Food bolus, distal narrowing of the esophagus, gastric polyps. PROCEDURES: EGD with removal of food bolus of the esophagus using Reveal Distal end cap and biopsy of GE junction. INDICATIONS: The patient is an 82-year-old female eating chicken noodle, then felt that lodge and could not keep secretions down. She has had previous episodes of this. She understands risks and benefits and wished to proceed. Consent was signed and in chart. DESCRIPTION OF PROCEDURE: The patient was taken to the endoscopy suite, placed in left lateral recumbent position. Timeout was performed. Scope was inserted in the mouth, down the esophagus, I encountered large amount of secretions and food particulate. This was able to be suctioned as much as possible. Scope was then retracted back. A Reveal Distal end cap was placed and inserted and continuous suction and removed the food particles by suctioning and retracting out removing it from the esophagus and mouth. Multiple insertions and retractions were made until all the food particulate was removed. The scope was able to be passed through the GE junction into the stomach. Minimal food contents in the stomach, multiple gastric polyps present. Scope was retroflexed noting no other pathology. Scope was returned to its normal position, slowly withdrawn until completely removed. Reveal distal end cap was removed. Scope was inserted in the mouth, down the esophagus, stomach, into the duodenum without difficulty. There were no polyps, masses or ulcerations in the duodenum. Scope was slowly retracted back into stomach where it was further insufflated noting no other changes. Scope was then slowly retracted back to the distal esophagus, had some slight narrowing, and some erythematous changes. Biopsy of GE junction was obtained. Scope was slowly retracted back until completely removed, noting no other pathology. RECOMMENDATIONS: The patient to continue on Protonix, we will add Carafate 1 gram 4 times a day made into a slurry. She will follow up in 2 weeks. She will follow up on pathology in 2 weeks. We would consider repeating EGD and possible dilatation for followup. Job ID: [id number] DocumentID: [id number] Dictated Date: 02/05/2023 21:57:04 Turbine Room Attendant Date: 02/06/2023 01:04:00 Dictated By: DEBRA VÁZQUEZ DO
== END 2023-02-05 23:50 | disposition home or self-care (01) ==
LOC: EDUNIT# 19:05 → ER 19:06 → SDC 20:29
PROVIDERS: ATTEND Surgery
DX: T18.128A Food in esophagus causing other injury, initial encounter (principal); K22.2 Esophageal obstruction; K31.7 Polyp of stomach and duodenum; Z87.891 Personal history of nicotine dependence; Z79.01 Long term (current) use of anticoagulants
CPT/HCPCS: 36415; 71045; 80053; 82150; 83690; 85025; 88305; 93041; 96374

== ENCOUNTER → 2023-02-27 | Outpatient (CLI) | payer MEDICARE ==
[~2023-02-27] MED LIST changes: +SUCR1TAB36 PO
== END ==
LOC: CARD 10:54
PROVIDERS: ATTEND Internal Medicine Cardiovascular Disease
DX: I11.9 Hypertensive heart disease without heart failure (principal); I34.0 Nonrheumatic mitral (valve) insufficiency; I35.1 Nonrheumatic aortic (valve) insufficiency
CPT/HCPCS: 93306

== ENCOUNTER → 2023-03-01 | Outpatient (CLI) | payer MEDICARE ==
--- NOTE | 2023-03-01 11:42 | Diagnostic Imaging Report ---
INDICATION: Dysphasia. Procedure was performed in conjunction with speech pathology. Video fluoroscopy was performed during the swallowing of barium at multiple consistencies. 57 seconds of fluoroscopic time was utilized. Reference air [place] is 3.2 mg. Patient ingested thin barium as well as applesauce, banana and cracker consistency. Oral phase unremarkable. There is normal epiglottic tilt and laryngeal elevation. No penetration or aspiration was observed. There is no vallecular or piriform sinus residue. IMPRESSION: Unremarkable modified barium swallow study. Dictated by: Dictated on workstation # [id number]
== END ==
LOC: RAD 10:00
PROVIDERS: ATTEND Surgery
DX: R13.10 Dysphagia, unspecified (principal)
CPT/HCPCS: 74230